=== PATIENT | female | born 2005 | race Caucasian/White ===

== ENCOUNTER 2025-03-30 13:13 | Outpatient (REF) | payer BC, SELFPAY ==
[2025-03-31 13:10] LABS: Chlamydia Result Negative (Negative); GC Result Negative (Negative)
== END 2025-03-30 13:14 | disposition home or self-care (01) ==
LOC: LBN 13:13
PROVIDERS: PCP Advanced Practice Midwife; Visit Provider Obstetrics & Gynecology
DX: R30.0 Dysuria (principal); Z12.4 Encounter for screening for malignant neoplasm of cervix
CPT/HCPCS: 87491; 87591; 88142; 87086